=== PATIENT | female | born 1950 | race Caucasian/White ===

== ENCOUNTER 2020-11-25 08:25 | Outpatient (CLI) | payer MEDICARE, SELFPAY ==
[2020-11-25 10:10] LABS: Basophils Percent Auto 0.5 % (0.2-1.2); Eosinophils Absolute Auto 0.1 K/mm3 (0-0.3); Eosinophils Percent Auto 1.9 % (0-4.4); Hematocrit 39.6 % (37.0-47.0); Hemoglobin 13.1 g/dL (12.0-15.0); Immature Granulocyte Absolute 0.02 K/mm3 (0.00-0.031); Immature Granulocyte Percent A 0.3 % (0-0.5); Lymphocytes Absolute Auto 2.29 K/mm3 (0.9-3.2); Lymphocytes Percent Auto 35.4 % (18.3-44.2); Mean Corpuscular HGB Conc 33.1 g/dl (32-36); Mean Corpuscular Hemoglobin 31.6 pg (26-34); Mean Corpuscular Volume 95.4 fl (80-100); Mean Platelet Volume 9.6 fl (7.4-10.4); Monocytes Absolute Auto 0.5 K/mm3 (0.1-0.6); Monocytes Percent Auto 7.1 % (2.6-8.5); Neutrophils Absolute Auto 3.5 K/mm3 (1.3-6.7); Neutrophils Percent Auto 54.8 % (45.5-73.1); Platelet Count Result 233 k/mm3 (150-375); Red Blood Count 4.15 M/mm3 (4.2-5.4); Red Cell Distribution Width 13.3 % (11.5-14.5); White Blood Count 6.5 K/mm3 (4.5-10.0)
[2020-11-25 10:22] LABS: Albumin Level 4.5 g/dL (3.5-5.1); Estimated Glomerular Filt Rate > 60; Glucose 114 mg/dL (65-110)
[2020-11-25 10:31] LABS: Hemoglobin A1C 5.7 % (<5.7); Urine Cotinine NEGATIVE
== END 2020-11-25 08:26 | disposition home or self-care (01) ==
LOC: ANHSURGERY 08:30
PROVIDERS: Visit Provider Orthopaedic Surgery
DX: Z01.818 Encounter for other preprocedural examination (principal); M16.12 Unilateral primary osteoarthritis, left hip
CPT/HCPCS: 80307; 82040; 82565; 82947; 83036; 85025; 87081

== ENCOUNTER 2021-06-07 08:08 | Outpatient (CLI) | payer MEDICARE, SELFPAY ==
--- NOTE | 2021-06-07 09:08 | ECG_ITS ---
Measurements Intervals [place] Rate: 65 P: 49 ND: 195 QRS: 45 QRSD: 146 T: 41 QT: 446 QTc: 464 Interpretive Statements SINUS RHYTHM RIGHT BUNDLE BRANCH BLOCK Electronically Signed On 06-07-2021 9:58:17 CDT by Reji Severino M.D.
[2021-06-07 09:40] LABS: Basophils Percent Auto 0.5 % (0.2-1.2); Eosinophils Absolute Auto 0.1 K/mm3 (0-0.3); Hematocrit 35.9 % (37.0-47.0); Hemoglobin 11.7 g/dL (12.0-15.0); Immature Granulocyte Absolute 0.02 K/mm3 (0.00-0.031); Immature Granulocyte Percent A 0.4 % (0-0.5); Lymphocytes Absolute Auto 2.29 K/mm3 (0.9-3.2); Lymphocytes Percent Auto 40.7 % (18.3-44.2); Mean Corpuscular HGB Conc 32.6 g/dl (32-36); Mean Corpuscular Hemoglobin 30.9 pg (26-34); Mean Corpuscular Volume 94.7 fl (80-100); Monocytes Absolute Auto 0.5 K/mm3 (0.1-0.6); Monocytes Percent Auto 8.2 % (2.6-8.5); Neutrophils Absolute Auto 2.7 K/mm3 (1.3-6.7); Neutrophils Percent Auto 48.2 % (45.5-73.1); Platelet Count Result 221 k/mm3 (150-375); Red Blood Count 3.79 M/mm3 (4.2-5.4); Red Cell Distribution Width 13.7 % (11.5-14.5); White Blood Count 5.6 K/mm3 (4.5-10.0)
[2021-06-07 09:46] LABS: Albumin Level 4.3 g/dL (3.5-5.1); Estimated Glomerular Filt Rate > 60; Glucose 115 mg/dL (65-110)
[2021-06-07 09:46] LABS: Urine Cotinine NEGATIVE
[2021-06-07 09:51] LABS: Hemoglobin A1C 5.3 % (<5.7)
== END 2021-06-07 08:09 | disposition home or self-care (01) ==
LOC: ANHSURGERY 08:13
PROVIDERS: Visit Provider Orthopaedic Surgery
DX: M16.12 Unilateral primary osteoarthritis, left hip (principal); Z01.818 Encounter for other preprocedural examination; I45.10 Unspecified right bundle-branch block
CPT/HCPCS: 80307; 82040; 82565; 82947; 83036; 85025; 87081; 93005